=== PATIENT | male | born 1950 | race Two or more races ===

== ENCOUNTER 2017-01-07 16:04 | Emergency (ER) | payer SELFPAY ==
[~2017-01-07] VITALS: Ht 170.2 cm; Wt 77.1 kg
[2017-01-07] MEDS ORDERED: Lidocaine 1% MPF 10mg/ml 5ml INJ ONE (16:45)
[2017-01-07 17:14] VITALS: BP 134/75
[2017-01-07] MEDS ORDERED: Bacitracin Oint UD TOPIC ONE ×2 (19:23→19:45)
[2017-01-07] MEDS ORDERED: IBUPROFEN600 MG ORAL (19:54)
[2017-01-07 20:10] VITALS: BP 128/89
--- NOTE | 2017-01-08 08:19 | Diagnostic Imaging Report ---
Indication: FALL Technique: spiral acquisitions obtained through the brain. Angled axial and coronal 5 x 5 mm slices were reconstructed. No IV contrast utilized. Radiation dose was minimized using automated exposure control Total dose length product 1004 and 78 mGycm. CTDIvol(s) 70 mGy Comparison: none FINDINGS: No acute hemorrhage or edema. No mass effect or midline shift. There is minimal age-related enlargement of the ventricles and extra axial CSF spaces. There is minimal periventricular deep white matter ischemic change. Normal mclean-white differentiation. Visualized orbits are unremarkable. There is a parenchymal calcification within the right temporal lobe is only on the coronal images.. Intact calvarium. There is bilateral maxillary and ethmoid sinus mucosal disease. The mastoids are clear IMPRESSION: Chronic and age-related changes. 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 Flores The CT scanner at [facility] is accredited by the [employer] and the scans are performed using protocols designed to limit radiation exposure to as low as reasonably achievable to attain images of sufficient resolution adequate for diagnostic evaluation
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
--- NOTE | 2017-01-08 13:32 | Diagnostic Imaging Report ---
Indication: PAIN Technique: 3 views of the left shoulder Comparison: none Findings: No acute fractures. No dislocations. Soft tissue gas is seen in the lateral proximal arm soft tissues, consistent with laceration. No radiopaque foreign body demonstrated. Minimal calcification is seen over the greater tuberosity consistent with rotator cuff calcific tendinosis Impression:Negative for evidence of acute bony trauma or radiopaque foreign body
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
== END 2017-01-07 20:00 | disposition home or self-care (01) ==
LOC: EDBD 16:04 → EMR 17:23
DX: S00.81XA Abrasion of other part of head, initial encounter (principal); S41.012A Laceration without foreign body of left shoulder, initial encounter; S51.812A Laceration without foreign body of left forearm, initial encounter; S81.812A Laceration without foreign body, left lower leg, initial encounter; W03.XXXA Other fall on same level due to collision with another person, initial encounter; Y93.9 Activity, unspecified; Y92.9 Unspecified place or not applicable
CPT/HCPCS: 70450; 99284